=== PATIENT | male | born 1965 | race Caucasian/White ===

== ENCOUNTER 2025-04-29 09:14 | Outpatient (AMB) | payer OTHER, SELFPAY ==
--- NOTE | 2025-04-29 09:17 | A.OFFPC_ITS ---
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 Technician Required: No Accompanied by: Self / Same As Patient Allergies No Known Allergies Allergy (Verified 04/29/25 09:17) Tobacco use date assessed: 04/29/25 Dental Screening Dental Screen Date: 04/29/25 Did you have a dental visit in the last 12 months?: No Did you have a dental problem in the last 6 months where you did not have access to dental care?: No Was dental information given to patient?: Patient has dentist HPI HPI Comments History of Present Illness Details History of Present Illness The patient is a 59-year-old male presenting with diabetes mellitus management and associated preventative care. Diabetes Mellitus: - The patient has a history of diabetes mellitus diagnosed in 1999, with regular monitoring of blood glucose and HbA1c levels every three months. - The patient has not seen an ophthalmol ogist or speaker mounter this year, which is recommended annually for diabetic patients. - The patient is advised to see a nutrit ionist and in service educator for dietary management and education. Hyperlipidemia: - The patient is undergoing evaluation f or lipid levels, including cholesterol and triglycerides. Ear Wax Accumulation: - The patient reports a history of wax a ccumulation in the left ear, with a recommendation for Debrox drops to manage the condition. Dermatitis: - Dermatitis was noted at the waistline, with a recommendation for topical cream application. Review of Systems - General: Denies fatigue, weight loss, or fever. - HEENT: Reports wax accumulation in the left ear. Denies headaches. - Respiratory: Denies cough or dyspnea. - Cardiovascular: Denies chest pain or p alpitations. - Gastrointestinal: Denies abdominal diego n or changes in bowel habits. - Genitourinary: Denies dysuria or hemat uria. - Dermatological: Reports dermatitis at the waistline. 10-point ROS reviewed and negative excep t as noted in HPI Past Medical History - Diabetes Mellitus, diagnosed in 1999 - Hyperlipidemia Health Maintenance - Annual ophthalmology and podiatry refe rrals for diabetes management - Referral to a intelligent systems engineer and diabete s educator for dietary management - Blood tests for glucose, HbA1c, lipid profile, renal function, and electrolytes Physical Exam General: Well-appearing, in no acute distress. Vital signs: Within normal limits. HEENT: Normocephalic, atraumatic. PERRLA, EOMI. Conjunctiva clear, sclera anicteric. Oropharynx clear, mucous membranes moist. TMs intact bilaterally. Excessive wax in the left ear; prescribed Debrox drops, 5 drops twice daily. Neck: Supple, no lymphadenopathy, no thyromegaly, no JVD or carotid bruits. Cardiovascular: RRR, normal S1/S2, no murmurs, rubs, or gallops. Peripheral pulses 2+ and symmetric. No edema. Respiratory: Lungs clear to auscultation bilaterally, no wheezes, rales, or rhonchi. Normal effort. Abdomen: Soft, non-tender, non-distended. Normoactive bowel sounds. No hepatosplenomegaly, no masses. MSK: Full range of motion, no joint swelling or deformity. Normal gait. Skin: Warm, dry, intact. Dermatitis noted at the waistline. concave fingernails on metal finger right hand Neuro: Alert and oriented x3. Cranial nerves II-XII intact. Strength 5/5 throughout. Sensation intact. Reflexes 2+ symmetric. Normal coordination and gait. Psych: Appropriate mood and affect. Normal judgment and insight. Plan 1. Dermatitis, unspecified L30.9 - Application of topical cream to manage dermatitis at the waistline. 2. Type 2 diabetes mellitus without comp lications E11.9 HCC 19 - Regular monitoring of blood glucose an d HbA1c levels every three months. - Referrals to ophthalmology and podiatr y for annual evaluations. - Referral to a intelligent systems engineer and diabete s educator for dietary management and education. 3. Ear Wax Accumulation - Use of Debrox drops to manage wax accu mulation in the left ear. 4. Mixed hyperlipidemia E78.2 - Evaluation of lipid levels and potenti al adjustment of medications based on results. Discussion Notes During the visit, I discussed the importance of regular monitoring of blood gluc ose and HbA1c levels every three months with the patient. I emphasized the need for annual ophthalmology and podiatry evaluations due to the patient's diabetic status. Additionally, I recommended referrals to a intelligent systems engineer and in service educator to aid in dietary management and education. We also discussed the use of Debrox drops for ear wax accumulation and topical cream for dermatitis management. Follow-up appointments were scheduled to review lab results and adjust medications as necessary. Patient was informed and verbally consented to the use of an ambient scribe for clinic note documentation during this visit. Patient Instructions - Monitor blood glucose and HbA1c levels every three months. - Schedule annual appointments with an o phthalmologist and speaker mounter. - Visit a intelligent systems engineer and diabetes educ ator for dietary guidance. - Use Debrox drops as directed for ear w ax. - Apply topical cream to the waistline a s prescribed. [facility] Medical History Type 2 diabetes mellitus Psoriasis Obesity Hypertension Hypercholesterolemia Erectile dysfunction Chronic joint pain Anxiety Family History (Updated 04/29/25 @ 09:37 by Anahi Garcia MA) Father No problems noted. Mother Alzheimer dementia Parkinson disease Social History (Updated 04/29/25 @ 09:18 by Anahi Garcia MA) Housing: Apartment Alcohol intake: current Alcohol intake frequency: does not drink Patient Tobacco Use Status: Never used Tobacco service: No Current occupational status: employed Cognitive needs: No Hearing needs: No Vision needs: Yes (rx glasses) Questionnaire PHQ-9 Over the last 2 weeks, how often have you been bothered by any of the following problems? 1. Little interest or pleasure in doing things: not at all 2. Feeling down, depressed, or hopeless: not at all 3. Trouble falling or staying asleep, or sleeping too much: not at all 4. Feeling tired or having little energy: not at all 5. Poor appetite or overeating: not at all 6. Feeling bad about yourself - or that you are a failure or have let yourself or your family down: not at all 7. Trouble concentrating on things, such as reading the newspaper or watching television: not at all 8. Moving or speaking so slowly that other people could have noticed. Or the opposite - being so fidgety or restless that you have been moving around a lot more than usual: not at all 9. Thoughts that you would be better off or of hurting yourself in some way: not at all Total score: 0 Depression Screening Interpretation: Negative Depression Screening Done: Yes Source: Developed by Drs. Allan Moore, Kingston Loyola and colleagues, with an educational christin from [employer]. Thrive Questionnaire Date Thrive assessed: 04/22/25 I am a: Patient What is your living situation today?: I have a steady place to live Within the past 12 months, did the food you bought not last and you didn't have the money to get more?: Never true Within the past 12 months, did you worry whether your food would run out before you got money to buy more?: Never true Do you have trouble paying for medicines?: No Do you have trouble getting transportation to medical appointments?: No Do you have trouble paying your heating and electricity bill?: No Do you have trouble taking care of your child, family member or friend?: No Do you have trouble with day-to-day activities such as bathing, preparing meals, shopping, managing finances, etc.?: No Are you currently unemployed and looking for a job?: No Are you interested in more education?: No Please select the resources that you would like help with: None Currently or been in a relationship where the following occur: No concerns reported THRIVE Score: 0 AUDIT C Alcohol Use Questionnaire (AUDIT-C) 1. How often do you have a drink containing alcohol?: Never 3. How often do you have six or more drinks on one occasion?: Never Total Score: 0 Score Reviewed/Action Taken: No ISHA-7 AMB Questionnaire ISHA-7 Date ISHA - 7 assessed: 04/29/25 Feeling nervous, anxious, or on edge: 0 = Not at all Not being able to stop or control worryin = Not at all Worrying too much about different things: 0 = Not at all Trouble relaxin = Not at all Being so restless that it is hard to sit still: 0 = Not at all Becoming easily annoyed or irritable: 0 = Not at all Feeling afraid as if something awful might happen: 0 = Not at all Total ISHA-7 score (0-4 normal; 5-9 mild; 10-14 moderate; 15-21 severe): 0 Source: Developed by Drs. Allan Moore, Kingston Loyola and colleagues, with an educational christin from [employer]. Physical exam (Primary Care) Tobacco/Smoking Status: Tobacco use Status Tobacco use date assessed 04/29/25 04/29/25 09:19 Patient Tobacco Use Status Never used Tobacco 04/29/25 09:19 PHQ-9: PHQ-9 Score PHQ-9: Total score 0 04/29/25 09:19 Depression Screening Interpretation: Negative Thrive Assessment: Date of Thrive Assessment Date Thrive assessed 04/22/25 04/29/25 09:19 Currently or been in a relationship where the following occur: No concerns reported Coding Level of Care Code New Pt Level 3 (15350) Diagnoses Encounter to establish care with new provider Z76.89 Encounter for screening, unspecified Z13.9 Counseling, unspecified Z71.9 Screening for depression Z13.31 Diabetes type 2 E11.9 Hypertension I10 Hypercholesterolemia E78.00 Overweight (BMI 25.0-29.9) E66.3 Cerumen impaction H61.20 Dermatitis L30.9 Angular cheilitis K13.0 Assessment & Plan Assessment & Plan (1) Encounter to establish care with new provider: Code(s): Z76.89 - Persons encountering health services in other specified circumstances (2) Encounter for screening, unspecified: Code(s): Z13.9 - Encounter for screening, unspecified (3) Counseling, unspecified: Code(s): Z71.9 - Counseling, unspecified (4) Screening for depression: Code(s): Z13.31 - Encounter for screening for depression (5) Diabetes type 2: Code(s): E11.9 - Type 2 diabetes mellitus without complications (6) Hypertension: Code(s): I10 - Essential (primary) hypertension (7) Hypercholesterolemia: Code(s): E78.00 - Pure hypercholesterolemia, unspecified (8) Overweight (BMI 25.0-29.9): Code(s): E66.3 - Overweight (9) Cerumen impaction: Code(s): H61.20 - Impacted cerumen, unspecified ear (10) Dermatitis: Code(s): L30.9 - Dermatitis, unspecified (11) Angular cheilitis: Code(s): K13.0 - Diseases of lips Plan Orders: Orders Complete Blood Count Auto Diff Today Z13.9 - Encounter for screening, unspecified, Z76.89 - Persons encountering health services in other specified circumstances Comprehensive Met. Panel Today Z13.9 - Encounter for screening, unspecified, Z76.89 - Persons encountering health services in other specified circumstances Hemoglobin A1c Today Z13.9 - Encounter for screening, unspecified, Z76.89 - Persons encountering health services in other specified circumstances Hepatitis B Surface Antibody Today Z13.9 - Encounter for screening, unspecified, Z76.89 - Persons encountering health services in other specified circumstances HIV Ab/Ag Today Z13.9 - Encounter for screening, unspecified, Z76.89 - Persons encountering health services in other specified circumstances Lipid Panel Today Z13.9 - Encounter for screening, unspecified, Z76.89 - Persons encountering health services in other specified circumstances Microalbumin, Random (w Creat) Today Z13.9 - Encounter for screening, unspecified, Z76.89 - Persons encountering health services in other specified circumstances Vitamin B12 and Folate Today Z13.9 - Encounter for screening, unspecified, Z76.89 - Persons encountering health services in other specified circumstances Hepatitis B Surface Antigen Today Z13.9 - Encounter for screening, unspecified, Z76.89 - Persons encountering health services in other specified circumstances Hepatitis C Antibody Today Z13.9 - Encounter for screening, unspecified, Z76.89 - Persons encountering health services in other specified circumstances Magnesium Today Z13.9 - Encounter for screening, unspecified, Z76.89 - Persons encountering health services in other specified circumstances TSH reflex Free T4 Today Z13.9 - Encounter for screening, unspecified, Z76.89 - Persons encountering health services in other specified circumstances UA CC w/rflx Micro + Cult Today Z13.9 - Encounter for screening, unspecified, Z76.89 - Persons encountering health services in other specified circumstances Vitamin D 1,25 dihydroxy Today Z13.9 - Encounter for screening, unspecified, Z76.89 - Persons encountering health services in other specified circumstances Referrals Nurse Navigator Referral E11.9 - Type 2 diabetes mellitus without complications Nutrition/Dietitian Referral E11.9 - Type 2 diabetes mellitus without complications Podiatry Referral E11.9 - Type 2 diabetes mellitus without complications, Z13.9 - Encounter for screening, unspecified Ophthalmology Referral E11.9 - Type 2 diabetes mellitus without complications, Z13.9 - Encounter for screening, unspecified Medications: New carbamide peroxide 6.5% (Debrox) 5 drps otic (ears) Q12H 15 mL 0RF 4 days triamcinolone acetonide 0.5% 1 appl topical BID 15 grams 0RF blood-glucose,adult and pediatric neurologist,cont (FreeStyle Boo 3 [place]) As directed 1 ea 0RF blood-glucose sensor (FreeStyle Boo 3 Plus Sensor device) As directed 1 ea 0RF
[2025-04-29 09:27] VITALS: BP 111/74; PULSE 66; RESP 16; TEMP 36.5; O2SAT 97; BMI 27.9
--- OUTSIDE RECORDS SUMMARY | 2025-04-29 09:54 | XMS_ITS | Clinical Summary ---
Author Organization [facility] Address [address] [place] [phone] Phone Care Team Providers Care Straight Knife Cutter Machine Name Role Phone Pcp, Unknown Primary Care Provider Unavailabl e Allergies No known active allergies Medications lisinopril (PRINIVIL,ZESTR IL) 5 MG tablet Take 5 mg by mouth daily. Unknown dose Active metFORMIN (GLUCOPHAGE) 500 MG tablet Take 500 mg by mouth 2 (two) times a day with meals. Active atorvastatin (LIPITOR) 10 MG tablet Take 10 mg by mouth daily. Unknown dose Active Social History Tobacco Use Types Packs/Day Years Used Date Smoking Tobacco: Never Assessed Education Answer Date Recorded Are you interested in more education? Not on qasim e 12/14/2022 Are you concerned about learning? Not on file 12/14/2022 No 12/14/2022 No 12/14/2022 Digital Access Answer Date Recorded No 12/22/2022 No 12/22/2022 Reliable internet access at home? Not on file 12/22/2022 Device with a working camera? Not on file Intimate Partner Violence Answer Date R ecorded Are you denied basic needs s uch as food, clothing, or medical care? No 12/14/2022 In the past 12 months have y ou been in a relationship with a person who hurts, threatens, or tries to control you? No 12/14/2022 Are you denied basic needs s uch as food, clothing, or medical care? No 12/14/2022 In the past 12 months have y ou been in a relationship with a person who hurts, threatens, or tries to control you? No 12/14/2022 Sex and Gender Information Value Date Recorded Sex Assigned at Not on file Legal Sex Male 10:49 AM EDT Gender Identity Not on file Sexual Orientation Not on file Last Filed Vital Signs Vital Sign Reading Time Taken Comments Blood Pressure 109/70 12/14/2022 2:53 PM EDT Pulse 61 12/14/2022 2:53 PM EDT Temperature 36.5 C (97.7 F) 12/14/2022 1:24 PM EDT Respiratory Rate 18 12/14/2022 2:53 PM EDT Oxygen Saturation 96% 12/14/2022 2:53 PM EDT Inhaled Oxygen Concentration - - Weight 92.1 kg (203 lb) 12/14/2022 11:21 AM EDT Height 175.3 cm (5' 9 ) 12/14/2022 11:21 AM EDT Body Mass Index 29.98 12/14/2022 11:21 AM EDT Plan of Treatment Not on file Medical Devices Not on file Insurance [employer] Care Teams Straight Knife Cutter Machine Relationship Specialty Start Date End Date Pcp, Unknown PCP - General 12/14/22 Additional Source Comments The information contained in this document represents components of the legal health record. It is not the complete legal health record.[facility]
== END 2025-04-29 10:04 | disposition home or self-care (01) ==
LOC: HO.HMCFMS 09:15
PROVIDERS: PCP Student in an Organized Health Care Education/Training Program; Visit Provider Student in an Organized Health Care Education/Training Program
DX: E11.620 Type 2 diabetes mellitus with diabetic dermatitis (principal); E66.3 Overweight; Z68.27 Body mass index [BMI] 27.0-27.9, adult; H61.22 Impacted cerumen, left ear; I10 Essential (primary) hypertension; E78.00 Pure hypercholesterolemia, unspecified; L30.9 Dermatitis, unspecified; K13.0 Diseases of lips

== ENCOUNTER 2025-04-29 09:14 | Outpatient (REF) | payer OTHER, SELFPAY ==
[2025-04-29 13:30] LABS: MANUAL DIFF FLAG NO
[2025-04-29 13:44] LABS: Hematocrit 49.4 % (42.0-52.0); Hemoglobin 16.7 g/dl (14.0-18.0); Imm Gran Abs Auto 0.10 X10*3/uL (0.00-0.03); Imm Gran Pct Auto 1.5 % (0.0-0.4); Lymphocytes Absolute Auto 1.4 X10*3/uL (1.2-4.9); Mean Corpuscular HGB Conc 33.8 g/dl (31.0-36.0); Mean Corpuscular Hemoglobin 30.3 pg (27.0-33.0); Mean Corpuscular Volume 89.7 fL (80.0-98.0); NRBC Abs Auto 0.000 X10*3/uL (0.0-0.012); NRBC Pct Auto 0.0 /100WBC (0.0-0.2); Platelet Count 322 X10*3/uL (160-400); Red Blood Count 5.51 X10*6/uL (4.60-5.80); White Blood Count 6.5 X10*3/uL (4.8-10.8)
[2025-04-29 13:57] LABS: Appearance Urine Clear; Glucose Urine UA >=1000 mg/dL (Negative); PH 6.5 (5.0-9.0); Specific Gravity - Urine >= 1.030 (1.005-1.025); UMIC TRIGGER UACC YES
[2025-04-29 14:08] LABS: Hemoglobin A1C 258.4183 umol/L
[2025-04-29 14:10] LABS: Alanine Aminotransferase 39 U/L (0-40); Albumin Level 4.8 g/dL (3.5-5.0); Alkaline Phosphatase 67 U/L (39-117); Anion Gap 12 (12-20); Aspartate Amino Transferase 28 U/L (5-37); Blood Urea Nitrogen 14 mg/dL (9-16); Calcium 9.4 mg/dL (8.4-10.2); Carbon Dioxide 23 mmol/L (22-29); Chloride 104 mmol/L (96-108); Cholesterol 157 mg/dL (<200); Estimated Glomerular Filt Rate > 60; HDL Cholesterol 51 mg/dL (>40); Magnesium 2.1 mg/dL (1.6-2.6); Potassium 4.4 mmol/L (3.3-5.1); Sodium 135 mmol/L (135-145); Total Protein 7.8 g/dL (6.5-8.0); Triglycerides 62 mg/dL (<150)
[2025-04-29 14:24] LABS: Microalbum/Creatinine Ratio Ur 44.6 ug/mg cr (<30)
[2025-04-29 14:37] LABS: Folate 12.6 ng/mL (> or = 4.0); Vitamin B12 608 pg/mL (200-900)
[2025-04-30 05:46] LABS: HBS Num1 4.72 mIU/mL (0-7.99); HBsAGNum1 0.29 S/CO (0.00-0.99); HIV Num 1 0.05 S/CO (0.00-0.99); Hepatitis B Surface Antigen Negative (Negative); ~HepC Num1 0.16 S/CO (0.00-0.79); ~Hepatitis B Surface Antibody NONREACTIVE (Nonreactive); ~Hepatitis C Antibody Nonreactive (Nonreactive)
[2025-05-03 12:53] LABS: VITAMIN D (1,25 OH) D3 39 pg/mL; Vit D (1,25-Dihydroxy) Total 39 pg/mL (18-72); Vitamin D (1,25 OH) D2 <8 pg/mL
== END 2025-04-29 09:15 | disposition home or self-care (01) ==
LOC: HO.HKASLDS 09:14
PROVIDERS: PCP Student in an Organized Health Care Education/Training Program; Visit Provider Student in an Organized Health Care Education/Training Program
DX: Z76.89 Persons encountering health services in other specified circumstances (principal); Z13.9 Encounter for screening, unspecified; Z71.9 Counseling, unspecified; Z13.31 Encounter for screening for depression; E11.9 Type 2 diabetes mellitus without complications; I10 Essential (primary) hypertension; E78.00 Pure hypercholesterolemia, unspecified; E66.3 Overweight; H61.20 Impacted cerumen, unspecified ear; L30.9 Dermatitis, unspecified; K13.0 Diseases of lips; Z68.27 Body mass index [BMI] 27.0-27.9, adult
CPT/HCPCS: 36415; 80053; 80061; 81001; 82043; 82570; 82607; 82652; 82746; 83036; 83735; 84443; 85025; 86706; 86803; 87340; 87389; 96127

== ENCOUNTER 2025-05-13 09:00 | Outpatient (AMB) | payer OTHER, SELFPAY ==
--- OUTSIDE RECORDS SUMMARY | 2025-05-13 09:04 | XMS_ITS | Clinical Summary ---
Author Organization [facility] Address [address] [place] [phone] Phone Care Team Providers Care Booster Pump Operator Name Role Phone Pcp, Unknown Primary Care [...] Devices Not on file Insurance [employer] [facility] [employer] [facility] [employer] [facility] M[employer] Care Teams Booster Pump Operator Relationship Specialty Start Date End Date Pcp, Unknown PCP - General 12/14/22 Additional Source Comments The information contained in this document represents components of the legal health record. It is not the complete legal health record.[facility]
[2025-05-13 09:08] VITALS: BP 124/70; PULSE 70; TEMP 36.6; O2SAT 96; BMI 28.2
--- NOTE | 2025-05-13 09:08 | A.OFFPC_ITS ---
Vital Signs 05/13/25 09:08 Height 5 ft 8.82 in Weight 190 lb 2 oz BMI 28.2 BP 124/70 Blood Pressure Location Lt brachial Position Sitting Pulse 70 Pulse Source Pulse Oximeter Temp 97.9 F Temp Source Oral Pulse Oximetry (%) 96 Oxygen Delivery Method Room Air Intake Visit Reasons: 2 week follow up Intake Note: f/u labs Rn Hyperbaric Required: No Accompanied by: Self / Same As Patient Allergies No Known Allergies Allergy (Verified 05/13/25 09:10) Tobacco use date assessed: 05/13/25 Dental Screening Dental Screen Date: 05/13/25 Did you have a dental visit in the last 12 months?: Yes Did you have a dental problem in the last 6 months where you did not have access to dental care?: No Was dental information given to patient?: Patient has dentist HPI HPI Comments History of Present Illness Details History of Present Illness The patient is a 40-year-old male presenting for management of chronic conditions including hypertension, diabetes mellitus, hyperlipidemia, and psoriasis. Hypertension: - The patient has a history of hypertens ion, which is currently being managed with medication. Diabetes Mellitus: - The patient's diabetes mellitus is marissa ng monitored with a Freestyle Boo sensor, and recent lab results show a hemoglobin A1c of 7.8%. - The patient is transitioning from glip izide to sitagliptin to better manage blood glucose levels. Hyperlipidemia: - The patient's LDL cholesterol is curre ntly at 94 mg/dL, and atorvastatin dosage is being increased to achieve better control. Psoriasis: - The patient reports significant improv ement in psoriasis symptoms with current dermatological treatment, including injections and topical creams. Review of Systems 10-point ROS reviewed and negative excep t as noted in HPI Past Medical History - Hypertension - Diabetes Mellitus - Hyperlipidemia - Psoriasis Health Maintenance - Monitoring of blood glucose levels usi ng Freestyle Boo sensor - Regular dermatological follow-up for p soriasis management Physical Exam General: Well-appearing, in no acute distress. Vital signs: Within normal limits. HEENT: Normocephalic, atraumatic. PERRLA, EOMI. Conjunctiva clear, sclera anicteric. Oropharynx clear, mucous membranes moist. TMs intact bilaterally. Neck: Supple, no lymphadenopathy, no thyromegaly, no JVD or carotid bruits. Cardiovascular: RRR, normal S1/S2, no murmurs, rubs, or gallops. Peripheral pulses 2+ and symmetric. No edema. Respiratory: Lungs clear to auscultation bilaterally, no wheezes, rales, or rhonchi. Normal effort. Abdomen: Soft, non-tender, non-distended. Normoactive bowel sounds. No hepatosplenomegaly, no masses. MSK: Full range of motion, no joint swelling or deformity. Normal gait. Skin: Warm, dry, intact. No rashes, lesions, or pallor. Neuro: Alert and oriented x3. Cranial nerves II-XII intact. Strength 5/5 throughout. Sensation intact. Reflexes 2+ symmetric. Normal coordination and gait. Psych: Appropriate mood and affect. Normal judgment and insight. Plan 1. Hypertension - Continue current antihypertensive franky men and monitor blood pressure regularly. 2. Diabetes Mellitus - Transition from glipizide to sitaglipt in to improve glycemic control; monitor hemoglobin A1c levels. 3. Hyperlipidemia - Increase atorvastatin dosage to lower LDL cholesterol levels below 70 mg/dL. 4. Psoriasis - Continue current dermatological treatm ent regimen and follow up with pinsetter mechanic helper. Discussion Notes During the visit, we discussed the management of diabetes mellitus, including transitioning from glipizide to sitagliptin to improve glycemic control. We also reviewed the importance of maintaining LDL cholesterol levels below 70 mg/dL for diabetic patients and decided to increase the atorvastatin dosage. The patient was advised to continue current treatments for hypertension and psoriasis and to follow up with the pinsetter mechanic helper. We also discussed the use of the Freestyle Boo sensor for glucose monitoring and its compatibility with smartphones. Patient was informed and verbally consented to the use of an ambient scribe for clinic note documentation during this visit. Patient Instructions - Continue taking your blood pressure me dication as prescribed. - Transition from glipizide to sitaglipt in for diabetes management. - Increase atorvastatin dosage as direct ed to manage cholesterol levels. - Use the Freestyle Boo sensor with [employer] smartphone for glucose monitoring. - Follow up with your pinsetter mechanic helper for psoriasis management. Total time spent caring for the patient today was 45 minutes. This includes time spent before the visit reviewing the chart, time spent documenting, and time spent reviewing laboratory results, diagnostic imaging, medications, performing a medically necessary evaluation, counseling on diagnoses, care coordination, ordering appropriate tests, ordering appropriate medications, review of tests performed by other providers, reporting test results with the patient. [facility] Medical History (Updated 05/13/25 @ 09:30 by Bobo Wise MD) Type 2 diabetes mellitus Psoriasis Obesity Hypertension Hypercholesterolemia Erectile dysfunction Chronic joint pain Anxiety Family History Father No problems noted. Mother Alzheimer dementia Parkinson disease Social History Housing: Apartment Alcohol intake: current Alcohol intake frequency: does not drink Patient Tobacco Use Status: Never used Tobacco service: No Current occupational status: employed Cognitive needs: No Hearing needs: No Vision needs: Yes (rx glasses) Questionnaire PHQ-9 Over the last 2 weeks, how often have you been bothered by any of the following problems? 1. Little interest or pleasure in doing things: not at all 2. Feeling down, depressed, or hopeless: not at all 3. Trouble falling or staying asleep, or sleeping too much: not at all 4. Feeling tired or having little energy: not at all 5. Poor appetite or overeating: not at all 6. Feeling bad about yourself - or that you are a failure or have let yourself or your family down: not at all 7. Trouble concentrating on things, such as reading the newspaper or watching te levision: not at all 8. Moving or speaking so slowly that other people could have noticed. Or the opposite - being so fidgety or restless that you have been moving around a lot more than usual: not at all 9. Thoughts that you would be better off or of hurting yourself in some way: not at all Total score: 0 Depression Screening Interpretation: Negative Depression Screening Done: Yes Source: Developed by Drs. Allan Moore, Yareli North, Kingston Flores and colleagues, with an educational christin from [employer]. Thrive Questionnaire Date Thrive assessed: 05/13/25 I am a: Patient What is your living situation today?: I have a steady place to live Within the past 12 months, did the food you bought not last and you didn't have the money to get more?: Never true Within the past 12 months, did you worry whether your food would run out before you got money to buy more?: Never true Do you have trouble paying for medicines?: No Do you have trouble getting transportation to medical appointments?: No Do you have trouble paying your heating and electricity bill?: No Do you have trouble taking care of your child, family member or friend?: No Do you have trouble with day-to-day activities such as bathing, preparing meals, shopping, managing finances, etc.?: No Are you currently unemployed and looking for a job?: No Are you interested in more education?: No Please select the resources that you would like help with: None Currently or been in a relationship where the following occur: No concerns reported THRIVE Score: 0 AUDIT C Alcohol Use Questionnaire (AUDIT-C) 1. How often do you have a drink containing alcohol?: Never 3. How often do you have six or more drinks on one occasion?: Never Total Score: 0 Score Reviewed/Action Taken: No ISHA-7 AMB Questionnaire ISHA-7 Date ISHA - 7 assessed: 05/13/25 Feeling nervous, anxious, or on edge: 0 = Not at all Not being able to stop or control worryin = Not at all Worrying too much about different things: 0 = Not at all Trouble relaxin = Not at all Being so restless that it is hard to sit still: 0 = Not at all Becoming easily annoyed or irritable: 0 = Not at all Feeling afraid as if something awful might happen: 0 = Not at all Total ISHA-7 score (0-4 normal; 5-9 mild; 10-14 moderate; 15-21 severe): 0 Source: Developed by Drs. Allan Moore, Yareli North, Kingston Flores and colleagues, with an educational christin from [employer]. Physical exam (Primary Care) Vital Signs: Last Vital Signs Temp 97.9 F 05/13/25 09:08 Pulse 70 05/13/25 09:08 BP 124/70 05/13/25 09:08 Pulse Ox 96 05/13/25 09:08 Oxygen Delivery Method Room Air 05/13/25 09:08 BMI result Body Mass Index 28.2 Tobacco/Smoking Status: Tobacco use Status Tobacco use date assessed 05/13/25 05/13/25 09:44 Patient Tobacco Use Status Never used Tobacco 05/13/25 09:09 PHQ-9: PHQ-9 Score PHQ-9: Total score 0 05/13/25 09:44 Depression Screening Interpretation: Negative Thrive Assessment: Date of Thrive Assessment Date Thrive assessed 05/13/25 05/13/25 09:11 Currently or been in a relationship where the following occur: No concerns reported Coding Level of Care Code Est Pt Level 4 (35352) Diagnoses Hypertension I10 Type 2 diabetes with nephropathy E11.21 Overweight with body mass index (BMI) 25.0-29.9 E66.3 Psoriasis L40.9 Assessment & Plan Assessment & Plan (1) Hypertension: Code(s): I10 - Essential (primary) hypertension Category: Medical (2) Type 2 diabetes with nephropathy: Code(s): E11.21 - Type 2 diabetes mellitus with diabetic nephropathy (3) Overweight with body mass index (BMI) 25.0-29.9: Code(s): E66.3 - Overweight (4) Psoriasis: Code(s): L40.9 - Psoriasis, unspecified Plan
== END 2025-05-13 10:02 | disposition home or self-care (01) ==
LOC: HO.HMCFMS 09:01
PROVIDERS: PCP Student in an Organized Health Care Education/Training Program; Visit Provider Student in an Organized Health Care Education/Training Program
DX: I10 Essential (primary) hypertension (principal); E11.21 Type 2 diabetes mellitus with diabetic nephropathy; E66.3 Overweight; L40.9 Psoriasis, unspecified